=== PATIENT | female | born 1955 | race Caucasian/White ===

== ENCOUNTER 2017-06-08 12:25 | Emergency (ER) | payer OTHER ==
[~2017-06-08] VITALS: Ht 162.6 cm; Wt 68.4 kg
[~2017-06-08 12:25] MED LIST: MEDR4PAK PO; ZITHTAB PO
[2017-06-08 12:28] VITALS: BP 185/96; PULSE 76; RESP 18; TEMP 97.9; O2SAT 98
--- NOTE | 2017-06-08 12:54 | PD ---
HPI Chief Complaint: Respiratory Symptoms Time Seen by Provider: 12:47 Travel History International Travel<30 days: Yes Contact w/Intl Traveler<30days: Yes Name of Country Traveled to: [place] Traveled to known affect area: No History of Present Illness HPI PATIENT STATES SHE SAW PCP EARLIER IN WEEK, AND TODAY SHE WAS ADVISED BY DR VIDAL TO RETURN TO ER FOR REPEAT CXR TO [facility] FOR PNA...PREVIOUSLY ON ZPAK AND MEDROL DOSEPAK WHICH SHE IS COMPLETING. PATIENT DEVELOPED LOSING HER VOICE TODAY. CONTINUES TO HAVE DIFFICULTY BREATHING DESPITE USING ALBUTEROL INH. DENIES FEVER/N/V/D/HOPE/CP/ABD PAIN AT THIS TIME PFSH Past Medical History Asthma: Yes Depression: Yes Respiratory: Yes (ASTHMA) Thyroid Disease: Yes (SHAHIDA'S) Menopausal: Yes Past Surgical History Gynecologic Surgery: Yes (C SECTION, D&C) Other Surgery: Yes (SALIVARY GLAND SURGERY) Social History Alcohol Use: Yes (WINE DAILY) Tobacco Use: No Substance Use: No Allergies-Medications (Allergen,Severity, Reaction): Coded Allergies: lidocaine (Verified Allergy, Unknown, 06/08/17) MD AWARE Reported Meds & Prescriptions Reported Meds & Active Scripts Active Albuterol Neb (Albuterol Sulfate) 2.5 Mg/3 Ml Neb 2.5 Mg NEB Q4HR NEB While awake Cipro (Ciprofloxacin HCl) 500 Mg Tab 500 Mg PO BID Medrol Dosepak (Methylprednisolone) 4 Mg Dspk 4 Mg PO DIRECTED Per Pharmacist direction Zithromax Z-Narinder (Azithromycin) 250 Mg Dspk 250 Mg PO DIRECTED 500 MG (2 tabs) day 1, then 1 tab days 2-5. Review of Systems Except as stated in HPI: all other systems reviewed are Neg General / Constitutional: No: Fever Eyes: No: Visual changes HENT: No: Headaches Cardiovascular: No: Chest Pain or Discomfort Respiratory: Positive: Shortness of Breath, Wheezing Gastrointestinal: No: Abdominal Pain Genitourinary: No: Dysuria Musculoskeletal: No: Pain Skin: No Rash Neurologic: No: Weakness Psychiatric: No: Depression Endocrine: No: Polydipsia Hematologic/Lymphatic: No: Easy Bruising Physical Exam Narrative GENERAL: SKIN: Warm and dry. HEAD: Atraumatic. Normocephalic. EYES: Pupils equal and round. No scleral icterus. No injection or drainage. ENT: No nasal bleeding or discharge. Mucous membranes pink and moist. NECK: Trachea midline. No JVD. CARDIOVASCULAR: Regular rate and rhythm. RESPIRATORY: No accessory muscle use. OPAL WHEEZING, DECREASED TV GASTROINTESTINAL: Abdomen soft, non-tender, nondistended. MUSCULOSKELETAL: Extremities without clubbing, cyanosis, or edema. No obvious deformities. NEUROLOGICAL: Awake and alert. No obvious cranial nerve deficits. Motor grossly within normal limits. Five out of 5 muscle strength in the arms and legs. Normal speech. PSYCHIATRIC: Appropriate mood and affect; insight and judgment normal. Data Data Last Documented VS Vital Signs Date Time Temp Pulse Resp B/P (MAP) Pulse Ox O2 Delivery O2 Flow Rate FiO2 06/08/17 16:11 06/08/17 16:09 74 16 96 Room Air 06/08/17 12:28 97.9 Orders Orders Albuterol Neb (Albuterol Neb) (06/08/17 13:00) Dexamethasone Inj (Decadron Inj) (06/08/17 13:00) Complete Blood Count With Diff (06/08/17 13:15) Basic Metabolic Panel (Bmp) (06/08/17 13:15) Troponin I (06/08/17 13:15) B-Type Natriuretic Peptide (06/08/17 13:15) Chest, Single Ap (06/08/17 13:15) Iv Access Insert/Monitor (06/08/17 13:15) Ecg Monitoring (06/08/17 13:15) Oximetry (06/08/17 13:15) Ed Discharge Order (06/08/17 15:43) Labs Laboratory Tests Test 06/08/17 13:36 White Blood Count 8.0 TH/MM3 Red Blood Count 4.36 MIL/MM3 Hemoglobin 13.5 GM/DL Hematocrit 39.7 % Mean Corpuscular Volume 91.1 FL Mean Corpuscular Hemoglobin 30.9 PG Mean Corpuscular Hemoglobin Concent 33.9 % Red Cell Distribution Width 11.3 % Platelet Count 436 TH/MM3 Mean Platelet Volume 7.4 FL Neutrophils (%) (Auto) 74.1 % Lymphocytes (%) (Auto) 17.0 % Monocytes (%) (Auto) 7.4 % Eosinophils (%) (Auto) 0.1 % Basophils (%) (Auto) 1.4 % Neutrophils # (Auto) 5.9 TH/MM3 Lymphocytes # (Auto) 1.4 TH/MM3 Monocytes # (Auto) 0.6 TH/MM3 Eosinophils # (Auto) 0.0 TH/MM3 Basophils # (Auto) 0.1 TH/MM3 CBC Comment DIFF FINAL Differential Comment Blood Urea Nitrogen 12 MG/DL Creatinine 0.82 MG/DL Random Glucose 100 MG/DL Calcium Level 9.3 MG/DL Sodium Level 132 MEQ/L Potassium Level 3.3 MEQ/L Chloride Level 97 MEQ/L Carbon Dioxide Level 20.6 MEQ/L Anion Gap 14 MEQ/L Estimat Glomerular Filtration Rate 70 ML/MIN Troponin I LESS THAN 0.02 NG/ML B-Type Natriuretic Peptide 55 PG/ML MDM Medical Decision Making Medical Screen Exam Complete: Yes Emergency Medical Condition: Yes Medical Record Reviewed: Yes Differential Diagnosis PNA V PE V PTX V COPD EXACERBATION Narrative Course UPON REVIEW OF CHART FROM LAST VISIT, PATIENT FOUND TO HAVE HYPONATREMIA, CXR NEG, AND CT CHEST CONTRAST NEG FOR PERICARDIAL EFFUSION/PE/OR INFILTRATE Physician Communication Physician Communication D/W DR VIDAL WHO RECC REPEAT BLOODWORK IF PERSISTENT HYPONATREMIA TO ADMIT, HOWEVER IF NO MAJOR ELECTROLYTE ISSUES CONFOUNDING CLINCAL PNA WITH BRONCHOSPASM THEN CAN D/C HOME... DR VIDAL WILL TRY TO SETUP FOR HOME NEBULIZERS Diagnosis Primary Impression: ACUTE BRONCHOSPASM W/O HYPOXEMIA Patient Instructions: Bronchospasm (ED), General Instructions Scripts Albuterol Neb (Albuterol Neb) 2.5 Mg/3 Ml Neb 2.5 MG NEB Q4HR NEB for Breathing Treatment, #60 NEBULE 0 Refills While awake Prov: Elijah Jackson MD 06/08/17 Ciprofloxacin (Cipro) 500 Mg Tab 500 MG PO BID for Infection, #14 TAB 0 Refills Prov: Elijah Jackson MD 06/08/17 Disposition: 01 DISCHARGE HOME Condition: Stable Elijah Jackson MD Jun 08, 2017 12:54
[2017-06-08] MEDS ORDERED: DEXAMETHASONE SOD PHOS 4 MG/ML VIAL IM ONE (13:00)
[2017-06-08] MEDS: RESP: ALBUTEROL 2.5 MG/3 ML NEB (SCH) INH ×2 (13:00→13:01)
--- NOTE | 2017-06-08 13:37 | RADRPT ---
EXAM DATE/TIME: 06/08/2017 13:23 [facility] COMPARISON: No previous studies available for comparison. INDICATIONS : Cough, congestion, very short of breath MEDICAL HISTORY : None. SURGICAL HISTORY : None. ENCOUNTER: [facility] ACUITY: 2 weeks PAIN SCORE: 0/10 LOCATION: Bilateral chest FINDINGS: A single view of the chest demonstrates the lungs to be symmetrically aerated without evidence of mas s, infiltrate or effusion. The cardiomediastinal contours are unremarkable. Osseous structures are intact. CONCLUSION: No acute disease. Yoni Reinoso MD FACR on June 08, 2017 at 13:35 Board Certified Radiologist. This report was verified electronically.
[2017-06-08 13:43] VITALS: O2SAT 98
[2017-06-08 13:51] LABS: AUTOMATED NEUTROPHIL # 5.9 TH/MM3 (1.8-7.7); BASOPHIL # 0.1 TH/MM3 (0-0.2); BASOPHIL % 1.4 % (0.0-2.0); EOSINOPHIL % 0.1 % (0.0-4.0); HEMATOCRIT 39.7 % (35.0-46.0); LYMPHOCYTE # 1.4 TH/MM3 (1.0-4.8); MEAN CELL VOLUME 91.1 FL (80.0-100.0); MEAN CORPUSCULAR HEMOGLOBIN 30.9 PG (27.0-34.0); MEAN CORPUSCULAR HGB CONC 33.9 % (32.0-36.0); MONO % 7.4 % (0.0-8.0); NEUT % 74.1 % (16.0-70.0); PLATELET COUNT 436 TH/MM3 (150-450); RED BLOOD COUNT 4.36 MIL/MM3 (4.00-5.30); RED CELL DISTRIBUTION WIDTH 11.3 % (11.6-17.2)
[2017-06-08 13:58] LABS: HEMO FLAGS DIFF FINAL
[2017-06-08 14:10] LABS: CHLORIDE 97 MEQ/L (98-107); POTASSIUM 3.3 MEQ/L (3.5-5.1); SODIUM (NA) 132 MEQ/L (136-145)
[2017-06-08 14:15] LABS: ANION GAP 14 MEQ/L (5-15); BICARBONATE 20.6 MEQ/L (21.0-32.0); BLOOD UREA NITROGEN 12 MG/DL (7-18)
[2017-06-08 14:18] LABS: GLOMERULAR FILTRATION RATE 70 ML/MIN (>89)
[2017-06-08] MEDS ORDERED: CIPR-9 PO (15:43)
[2017-06-08] MEDS ORDERED: ALBU0.08 NEB (15:43)
[2017-06-08 16:09] VITALS: BP 116/72; PULSE 74; RESP 16; O2SAT 96
== END 2017-06-08 16:14 | disposition home or self-care (01) ==
LOC: PHED 12:25
DX: J45.909 Unspecified asthma, uncomplicated (principal); R06.02 Shortness of breath
CPT/HCPCS: 71010; 80048; 83880; 84484; 85025; 94640; 94664; 96374; 99284; J1100; J7613